=== PATIENT | female | born 1955 | race Caucasian/White ===

== ENCOUNTER 2024-04-22 06:30 | Day surgery (SDC) | payer MEDICARE, OTHER ==
[~2024-04-22] VITALS: Ht 157.5 cm; Wt 68.6 kg
[2024-04-22] VITALS (9 sets, daily range): BP systolic 96–111; BP diastolic 54–63; PULSE 59–74; TEMP 97.5–97.9
[~2024-04-22 06:30] MED LIST: Celecoxib 400 MG PREOP X1 PO SCH; LR 1,000 ML IV SCH; Meclizine 25 MG TAB PO SCH; Pregabalin 150 MG CAP PREOP X1 PO SCH; oxyCODONE ER (12-HR) 20 MG TAB PREOP X1 PO SCH
[2024-04-22] MEDS ORDERED: fentaNYL 50 MCG/ML 2 ML VIAL ONE ×2 (07:32→09:01)
[2024-04-22] MEDS ORDERED: Midazolam 2 MG/2 ML VIAL ONE (07:32)
[2024-04-22] MEDS ORDERED: NS 250 ML IV ONE (07:33)
[2024-04-22] MEDS ORDERED: Rocuronium 50 MG/5 ML Multi-Dose VIAL ONE (07:33)
[2024-04-22] MEDS ORDERED: Succinylcholine PF 200 MG/10 ML SYRINGE IV ONE (07:33)
[2024-04-22] MEDS ORDERED: NS 100 ML IV ONE (07:35)
[2024-04-22] MEDS ORDERED: LIPITOR20 MG PO (07:35)
[2024-04-22] MEDS ORDERED: NS 10 ML IV ONE (07:35)
[2024-04-22] MEDS ORDERED: Phenylephrine 10 MG/ML VIAL ONE (07:35)
[2024-04-22] MEDS ORDERED: dexAMETHasone 10 MG/ML VIAL ONE (07:35)
[2024-04-22] MEDS ORDERED: Glycopyrrolate 0.2 MG/ML 1 ML VIAL ONE (07:35)
[2024-04-22] MEDS ORDERED: XALATAN EYE DROPS OU (07:35)
[2024-04-22] MEDS ORDERED: Ondansetron 4 MG/2 ML VIAL ONE (07:35)
--- NOTE | 2024-04-22 07:35 | NUR ---
The patient ambulated back to [facility] independently using a steady gait and appeared to tolerate the activity well. Vital signs obtained. Consent signed. 18G IV started in left hand with one stick, LR infusing without difficulty. Thigh NESHA hose placed bilaterally. Chlorhexidine scrube completed to right shoulder. Assessment completed. Home medication reconcilled. Warm blanket provided. Family brought back to see her before she was taken over to the recovery room to have her pre op nerve block placed.
[2024-04-22] MEDS ORDERED: ALLEGRA 180MG180 MG PO (07:36)
[2024-04-22] MEDS ORDERED: ALPHAGAN P 15 M15 ML OU (07:36)
[2024-04-22] MEDS ORDERED: PEPCID 20MG TAB20 MG PO (07:37)
[2024-04-22] MEDS ORDERED: CALCIUM 600600 MG PO (07:37)
[2024-04-22] MEDS ORDERED: LUTEIN20 M1 PO (07:37)
[2024-04-22] MEDS ORDERED: CENTRUM SILVER1 CTB PO (07:38)
[2024-04-22] MEDS ORDERED: PROLIA60 MG/ML SQ (07:39)
[2024-04-22] MEDS ORDERED: CALCIUM 600MG+D1 TAB PO (07:40)
[2024-04-22] MEDS ORDERED: BUPIVACAINE IJ ONE (07:46)
[2024-04-22] MEDS ORDERED: [UNRECOGNIZED DRUG - OTHER] IJ ONE (07:46)
[2024-04-22] MEDS ORDERED: CELEBREX 200MG200 MG PO (08:12)
[2024-04-22] MEDS ORDERED: ULTRAM 50MG TAB50 MG PO (08:13)
[2024-04-22] MEDS ORDERED: TYLENOL 500MG500 MG PO (08:13)
[2024-04-22] MEDS ORDERED: ROXICODONE 55 MG/TAB PO (08:13)
[2024-04-22] MEDS ORDERED: oxyCODONE 5 MG TAB PO PRN (08:15)
[2024-04-22] MEDS ORDERED: Morphine 4 MG/ML VIAL IV PRN (08:15)
[2024-04-22] MEDS ORDERED: Promethazine 25 MG TAB PO PRN (08:15)
[2024-04-22] MEDS ORDERED: traMADol 50 MG TAB PO PRN (08:15)
[2024-04-22] MEDS ORDERED: ePHEDrine 50 MG/ML VIAL ONE (08:48)
[2024-04-22] MEDS ORDERED: hydrALAZINE 20 MG/ML 1 ML VIAL IV PRN (09:30)
[2024-04-22] MEDS ORDERED: Ondansetron 4 MG/2 ML VIAL IV PRN (09:30)
[2024-04-22] MEDS ORDERED: fentaNYL 50 MCG/ML 1 ML SYRINGE/VIAL [PACU/SDC ONLY] IV PRN (09:30)
[2024-04-22] MEDS ORDERED: HYDROmorphone 1 MG/1 ML SYRINGE [PACU/SDC ONLY] IV PRN (09:30)
--- NOTE | 2024-04-22 11:15 | NUR ---
PATIENT ADMITED INTO ROOM 327 POSTOP. ORIENTED BUT VERY SLEEPY. VSS. HEAD TO TOE ASSESSMENT COMPLETE. RIGHT SHOULDER AQUACEL DSG IS CD&I WITH ICE PACK INPLEACE. SCD'S TO BLE. FAMILY AT BEDSIDE. ORIENTED TO ROOM. TOLERATING ICE CHIPS. CALL LIGHT IN REACH.
[2024-04-22] MEDS ORDERED: Acetaminophen 500 MG TAB PO SCH (14:00)
--- NOTE | 2024-04-22 14:40 | NUR ---
PATIENT HAS VOIDED, TOLERATED SOME CLEARS, COMPLETED POST-OP VITALS, AND GIVEN FIRST SCHEDULED DOSE OF PO TYLENOL. PATIENT STILL ACTING TIRED AND SEEMS UNMOTIVATED TO DISCHARGE. FAMILY STILL AT BEDSIDE.
--- NOTE | 2024-04-22 16:20 | NUR ---
PATIENT MORE AWAKE, VSS. VOIDING & TOLERATING CLEARS. PAIN MANAGED. GAVE DISCHARGE INSTRUCTIONS, SCRIPTS ALREADY PICKED UP BY FAMILY, AND DISCUSSED PT & F/U APT. ANSWERED QUESTIONS/CONCERNS. DC'D LEFT HAND IV AND COVERED SITE WITH GAUZE & COBAN. PATIENT ASSISTED WITH STAFF TO DRESS TOP & SECURE ABD SLING TO RUE PROPERLY. PATIENT ESCORTED OUT VIA WC TO PERSONAL VEHICLE WITH FAMILY.
[2024-04-23] MEDS ORDERED: Celecoxib 200 MG CAP PO SCH (09:00)
== END 2024-04-22 16:25 | disposition home or self-care (01) ==
LOC: SDCO 06:30 → EDBD 07:30 → SDCO 07:30 → SURG 11:15 → SDCO 16:25
DX: M19.011 Primary osteoarthritis, right shoulder (principal); M75.101 Unspecified rotator cuff tear or rupture of right shoulder, not specified as traumatic; G89.18 Other acute postprocedural pain; K21.9 Gastro-esophageal reflux disease without esophagitis
CPT/HCPCS: OP; A4619; A6197; C1713; C1776; C9290; J0665; J0690; J1100; J1170; J2250; J2371; J2405; J2704; J3010; J7050; J7120